=== PATIENT | female | born 1995 | race Caucasian/White ===

== ENCOUNTER 2017-04-15 12:06 | Emergency (ER) | payer OTHER ==
[~2017-04-15] VITALS: Ht 160 cm; Wt 62.6 kg
[2017-04-15 12:29] VITALS: BP 129/74
[2017-04-15 12:47] LABS: BASOPHILS # (AUTO) 0.1 K/uL (0.00-0.22); BASOPHILS % (AUTO) 1.5 % (0.0-2.0); EOSINOPHILS # (AUTO) 0.1 K/uL (0-0.4); EOSINOPHILS % (AUTO) 1.2 % (0.0-4.0); HEMOGLOBIN 13.5 g/dL (12.0-16.0); LYMPHOCYTES # (AUTO) 2.1 K/uL (2.5-16.5); LYMPHOCYTES % (AUTO) 22.6 % (20.5-51.1); MEAN CORPUSCULAR HEMOGLOBIN 28 pg (27-31); MEAN CORPUSCULAR HGB CONC 34 g/dL (33-37); MEAN CORPUSCULAR VOLUME 83 fL (80-94); MONOCYTES # (AUTO) 0.7 K/uL (0.8-1.0); MONOCYTES % (AUTO) 7.3 % (1.7-9.3); NEUTROPHILS # (AUTO) 6.5 K/uL (1.8-7.7); NEUTROPHILS % (AUTO) 67.4 % (42.2-75.2); PLATELET COUNT (AUTO) 50 K/uL (140-450); RED BLOOD CELL COUNT(AUTO) 4.84 MIL/uL (4.20-5.40); RED CELL DISTRIBUTION WIDTH 12.6 % (11.6-13.7); WHITE BLOOD COUNT (AUTO) 9.5 K/uL (4.5-11.0)
[2017-04-15 12:56] LABS: INR 0.9 (0.8-1.2); PARTIAL THROMBOPLASTIN TIME 27.6 secs (22-35.6); PROTHROMBIN TIME 9.4 secs (10.8-13.4)
[2017-04-15 12:59] LABS: ANION GAP 10.8 (8-16); CALCIUM 8.7 mg/dL (8.5-10.1); CARBON DIOXIDE 27.3 mmol/L (21-32); CREATININE 0.7 mg/dL (0.6-1.3); POTASSIUM 4.1 mmol/L (3.5-5.1)
[2017-04-15 13:04] LABS: ALBUMIN 3.6 g/dL (3.4-5.0); TOTAL BILIRUBIN 0.5 mg/dL (0.0-1.0); TOTAL PROTEIN, SERUM 7.1 g/dL (6.4-8.2)
--- NOTE | 2017-04-15 14:10 | NUR ---
PATIENT PRESENTS TO ED WITH C/O RIGHT EAR PAIN . PT STATES THE PAIN STARTED 1 WEEK AGO AND HAS GOTTEN PROGRESSIVELY WORSE . DENIES N/V/D; SKIN IS PINK/WARM/DRY; AAOX4 WITH EVEN AND STEADY GAIT; LUNGS CLEAR BL; HR EVEN AND REGULAR; PT DENIES ANY FEVER, CP, SOB, OR COUGH AT THIS TIME; PATIENT STATES PAIN OF 6/10 AT THIS TIME; VSS; PATIENT POSITIONED FOR COMFORT; HOB ELEVATED; BEDRAILS UP X2; BED DOWN. ER MD MADE AWARE OF PT STATUS.
--- NOTE | 2017-04-15 14:14 | NUR ---
Jr [facility] PTYasmin
[2017-04-15 14:42] VITALS: BP 129/74
--- NOTE | 2017-04-15 14:43 | NUR ---
Patient discharged with v/s stable. Written and verbal after care instructions given and explained. Patient alert, oriented and verbalized understanding of instructions. Ambulatory with steady gait. All questions addressed prior to discharge. ID band removed. Patient advised to follow up with PMD. Rx of TYLENOL WITH CODEINE AND AMOXICILLIN given. Patient educated on indication of medication including possible reaction and side effects. Opportunity to ask questions provided and answered.
== END 2017-04-15 14:43 | disposition home or self-care (01) ==
LOC: MED 12:06
DX: H66.91 Otitis media, unspecified, right ear (principal); H60.91 Unspecified otitis externa, right ear; Z86.2 Personal history of diseases of the blood and blood-forming organs and certain disorders involving the immune mechanism
CPT/HCPCS: 36415; 80053; 82150; 82553; 83690; 83880; 85025; 85610; 85730; 99284

== ENCOUNTER 2019-05-03 15:35 | Emergency (ER) | payer BC, OTHER ==
[~2019-05-03] VITALS: Ht 157.5 cm; Wt 61.2 kg
[2019-05-03 15:39] VITALS: BP 133/78
--- NOTE | 2019-05-03 15:48 | NUR ---
PT AMBULATED TO ER BED 05
--- NOTE | 2019-05-03 16:04 | NUR ---
PT C/O THROBBING RIGHT-SIDED HEADACHE WITH AURA, BLURRED VISION, PHOTOPHOBIA, LEFT ARM AND UPPER LIP NUMBNESS SINCE 30 MINUTES AGO AT WORK. PT STATES SHE HAD HER FIRST EPISODE OF THIS KIND OF HEADACHE ON LAST FRINDAY WITH THE SAME SX AND VOMITING, NAUSEA. PT TRIED TYLENOL, BUT IT DID NOT WORK. DENIES N/V/D AT THIS TIME; SKIN IS PINK/WARM/DRY; AAOX4; PT DENIES ANY FEVER, CP, SOB, OR COUGH AT THIS TIME; PATIENT STATES PAIN OF 9/10 AT THIS TIME; VSS; PATIENT POSITIONED FOR COMFORT; HOB ELEVATED; BEDRAILS UP X1; BED DOWN. ER MD MADE AWARE OF PT STATUS.
[2019-05-03] MEDS ORDERED: cefTRIAXone 1,000 MG in LIDOCAINE MPF 1% - 5 mL VIAL 2.1 ML IM ONE (17:05)
[2019-05-03] MEDS ORDERED: KETOROLAC 60 MG/2 ML VIAL IM ONE (17:05)
[2019-05-03 18:05] VITALS: BP 121/69
--- NOTE | 2019-05-03 18:05 | NUR ---
Patient advised to follow up with PMD. Rx of Naprosyn, Macrodantin given. Patient educated on indication of medication including possible reaction and side effects. Opportunity to ask questions provided and answered. Pt was discharged by Dr. Myers.
== END 2019-05-03 18:05 | disposition home or self-care (01) ==
LOC: MED 15:35
DX: R51 Headache (principal); N39.0 Urinary tract infection, site not specified
CPT/HCPCS: 81002; 81025; 96372; 99283; J0696; J1885; J2001